=== PATIENT | female | born 1995 ===

== ENCOUNTER 2019-07-17 21:28 | Observation (INO) | payer SELFPAY ==
[2019-07-17 23:38] VITALS: BMI 30.2
[2019-07-18] MEDS ORDERED: Acetaminophen 650 MG Suppository PR PRN (02:21)
[2019-07-18] MEDS ORDERED: Ondansetron ODT 4 MG TAB PO PRN (02:21)
[2019-07-18] MEDS ORDERED: Acetaminophen 325 MG TAB PO PRN (02:21)
[2019-07-18] MEDS: Sodium Chloride 0.9% 1,000 ML IV SCH ×3 (02:53→23:24)
[2019-07-18 04:43] LABS: #Lymphocytes 2.2 thou/uL (1.20-3.40); #Monocytes 0.6 thou/uL (0.11-0.59); #Neutrophils 3.3 thou/uL (1.40-6.50); %Basophils 0.6 % (0.0-1.0); %Eosinophils 0.8 % (0.0-10.0); %Lymphocytes 36.2 % (21.0-51.0); %Monocytes 9.3 % (0.0-10.0); %Neutrophils 53.2 % (42.0-75.0); Mean Corpuscular HGB CONC 33.6 g/dL (32.0-36.0); Mean Corpuscular Hemoglobin 27.6 pg (27.0-31.0); Mean Platelet Volume 8.6 fL (7.4-10.4); Platelet Count 192 thou/uL (130-400); RBC Distribution Width 15.1 % (11.5-14.5); Red Blood Cell (RBC) Count 3.97 mill/uL (4.20-5.40); White Blood Cell (WBC) Count 6.1 thou/uL (4.8-10.8)
[2019-07-18 05:04] LABS: Anion Gap 11 mmol/L (10-20); BUN (Urea Nitrogen) 11 mg/dL (7.0-18.7); Calc. Creatinine Clearance 145 mL/min (70-130); Carbon Dioxide 23 mmol/L (22-29); Chloride 108 mmol/L (98-107); Estimated GFR-MDRD Greater than 90; Glucose 112 mg/dL (70-105); Potassium 3.9 mmol/L (3.5-5.1); Sodium 138 mmol/L (136-145)
--- NOTE | 2019-07-18 07:12 | HP ---
PRIMARY CARE DOCTOR: The patient has no PCP. CODE STATUS: Full code. TIME OF EVALUATION: Around 2:00 a.m. CHIEF COMPLAINT: Abdominal pain. HISTORY OF PRESENT ILLNESS: This is a 23-year-old female patient with no significant past medical history except for cholecystectomy, came to the hospital after having severe gradually worsening abdominal pain that has been present for 2 days with no clear triggers, no alleviating factors, associated with nausea and vomiting. The patient reported that it is in the right upper quadrant. REVIEW OF SYSTEMS: All other systems were reviewed and negative except for the findings mentioned above. PAST MEDICAL HISTORY: Negative. FAMILY HISTORY: Negative. PAST SURGICAL HISTORY: Cholecystectomy. SOCIAL HISTORY: No alcohol, no drugs, no smoking history. ALLERGIES: NO KNOWN DRUG ALLERGIES. PHYSICAL EXAMINATION: VITAL SIGNS: Within normal limits. GENERAL APPEARANCE: The patient is alert, oriented, not in acute distress. HEENT: Eyes; normal conjunctivae. Moist oral mucosa. Anicteric. No JVD. RESPIRATORY: Bilateral air entry. No rales. No wheezes. Symmetric expansion. CARDIOVASCULAR: Normal rate. Regular rhythm. No murmurs. No gallop. No edema. ABDOMEN: Soft. Normal bowel sounds. Tender. No guarding. MUSCULOSKELETAL: Baseline range of motion and strength. SKIN: Warm, intact. No pallor. No rash. No redness. Capillary refill seems to be intact. NEUROLOGIC: No evidence of any new focal weakness. Cranial nerves seem to be intact. PSYCHIATRIC: The patient is in good mood. No anxiety. Optimal judgment. DIAGNOSTIC DATA: Prior to transfer, workup did not reveal any intraabdominal problems. Labs were done. The patient has a white count of 6.1, hemoglobin 11, MCV 82, platelet count 192. Chemistry: Sodium 138, potassium 3.9, chloride 108, carbon dioxide 23, anion gap 11, BUN 11, creatinine 0.8, GFR greater than 90, glucose 112, calcium 9.0. ASSESSMENT AND PLAN: The patient will be placed in the hospital with following medical problems: 1. Abdominal pain of unclear etiology. The patient is receiving pain management. We will monitor and treat accordingly. Please review prior to transfer records for any further need for workup if symptoms not improved. 2. Deep venous thrombosis prophylaxis. Job ID: [id number]
[2019-07-18] MEDS ORDERED: Diabetic Tussin 200 MG/10 ML UDCUP PO PRN (07:59)
[2019-07-18] MEDS ORDERED: Sodium Chloride 0.65% Nasal 44 ML BOT EA NARE PRN (07:59)
[2019-07-18] MEDS ORDERED: Calcium Carbonate 500 MG ChewTAB PO PRN (07:59)
[2019-07-18] MEDS ORDERED: hydrALAZINE 20 MG/ML VIAL SLOW IVP PRN (07:59)
[2019-07-18] MEDS ORDERED: Cepastat Lozenges 1 LOZ PO PRN (07:59)
[2019-07-18] MEDS ORDERED: Artificial Tears 18 DROP/0.9 ML EA EYE PRN (07:59)
[2019-07-18] MEDS ORDERED: Loratadine 10 MG TAB PO PRN (07:59)
[2019-07-18] MEDS ORDERED: Loperamide HCl 2 MG CAP PO PRN (07:59)
[2019-07-18] MEDS ORDERED: Senokot S 8.6-50 MG TAB PO PRN (07:59)
[2019-07-18] MEDS: Enoxaparin Sodium 40 MG/0.4 ML SYRINGE SC SCH (09:28)
[2019-07-18] MEDS: FLUoxetine HCl 20 MG CAP PO SCH (09:29)
[2019-07-18] MEDS: Dicyclomine 10 MG CAP PO SCH ×4 (09:29→20:32)
--- NOTE | 2019-07-18 12:12 | PDOC.HOSPP ---
- Subjective Encounter Date: 07/18/19 Encounter Time: 07:30 Subjective: pt has right sided abdominal pain, Patient seen and examined. No new complaints. No overnight events - Objective Vital Signs & Weight: Vital Signs (12 hours) Temp Pulse Resp BP BP Pulse Ox 07/18/19 07:43 98.4 F 61 18 117/76 99 07/18/19 04:18 98.4 F 61 16 114/72 99 07/18/19 00:15 97.9 F 60 16 110/66 100 Weight Weight 182 lb I&O: 07/17/19 07/18/19 07/19/19 06:59 06:59 06:59 Intake Total 300 Balance 300 Result Diagrams: 07/18/19 04:05 07/18/19 04:05 Radiology Reviewed by me: Yes EKG Reviewed by me: Yes Hospitalist ROS - Review of Systems Constitutional: denies: fever, chills, sweats, weakness, malaise, other Eyes: denies: pain, vision change, conjunctivae inflammation, eyelid inflammation, redness, other ENT: denies: ear pain, ear discharge, nose pain, nose discharge, nose congestion , mouth pain, mouth swelling, throat pain, throat swelling, other Respiratory: denies: cough, dry, shortness of breath, hemoptysis, SOB with excertion, pleuritic pain, sputum, wheezing, other Cardiovascular: denies: chest pain, palpitations, orthopnea, paroxysmal noc. dyspnea, edema, light headedness, other Gastrointestinal: reports: abdominal pain. denies: nausea, vomitting, diarrhea , constipation, melena, hematochezia, other Genitourinary: denies: dysuria, frequency, incontinence, hematuria, retention, other Musculoskeletal: denies: neck pain, shoulder pain, arm pain, back pain, hand pain, leg pain, foot pain, other Skin: denies: rash, lesions, ariadna, bruising, other - Medication Medications: Active Medications Generic Name Dose Route Start Last Admin Trade Name Freq PRN Reason Stop Dose Admin Dicyclomine HCl 10 mg 07/18/19 09:00 07/18/19 09:29 Bentyl PO 10 mg QID GABRIELA Administration Enoxaparin Sodium 40 mg 07/18/19 09:00 07/18/19 09:28 Lovenox SC 40 mg 0900 GABRIELA Administration Fluoxetine HCl 20 mg 07/18/19 09:00 07/18/19 09:29 Prozac PO 20 mg DAILY GABRIELA Administration Sodium Chloride 1,000 mls @ 100 mls/hr 07/18/19 02:30 07/18/19 02:53 Normal Saline 0.9% IV 1,000 mls .Q10H GABRIELA Administration - Exam General Appearance: NAD, awake alert Eye: PERRL, anicteric sclera ENT: normocephalic atraumatic, no oropharyngeal lesions Neck: supple, symmetric, no JVD, no thyromegaly Heart: RRR, no murmur, no gallops, no rubs Respiratory: CTAB, no wheezes, no rales, no ronchi Gastrointestinal: soft, non-distended, normal bowel sounds Extremities: no cyanosis, no clubbing Skin: normal turgor, no lesions, no rashes Neurological: CN's grossly intact, normal sensation to touch, no focal deficits Musculoskeletal: normal tone, normal strength Psychiatric: normal affect, normal behavior Hosp A/P (1) Abdominal pain Code(s): R10.9 - UNSPECIFIED ABDOMINAL PAIN Status: Acute Qualifiers: Abdominal location: right upper quadrant Qualified Code(s): R10.11 - Right upper quadrant pain (2) Obesity (BMI 30.0-34.9) Code(s): E66.9 - OBESITY, UNSPECIFIED Status: Chronic - Plan old records reviewed/req, plan discussed w/ family all investigation done at [place] [facility] ER is normal, exam is benign, will treat symptomatically medication reviewed as above symptomatic treatment
[2019-07-18] MEDS: HYDROcodone/Acetaminophen 5/325 mg Tablet PO PRN ×2 (16:07→21:34)
[2019-07-18] MEDS ORDERED: Pantoprazole 40 MG VIAL IVP SCH (16:30)
[2019-07-18] MEDS: Ketorolac Tromethamine 30 MG/ML VIAL IVP PRN (22:17)
[2019-07-18] MEDS: Zolpidem Tartrate 5 MG TAB PO PRN (23:30)
[2019-07-19] MEDS ORDERED: traMADol HCl 50 MG TAB PO SCH (00:30)
[2019-07-19 00:39] LABS: #Basophils 0.1 thou/uL (0.0-0.2); #Lymphocytes 2.8 thou/uL (1.20-3.40); #Monocytes 0.7 thou/uL (0.11-0.59); #Neutrophils 3.8 thou/uL (1.40-6.50); %Basophils 0.8 % (0.0-1.0); %Eosinophils 0.6 % (0.0-10.0); %Lymphocytes 37.6 % (21.0-51.0); %Monocytes 9.6 % (0.0-10.0); %Neutrophils 51.4 % (42.0-75.0); Hemoglobin 11.4 g/dL (12.0-16.0); Mean Corpuscular HGB CONC 32.1 g/dL (32.0-36.0); Mean Corpuscular Hemoglobin 26.7 pg (27.0-31.0); Mean Corpuscular Volume 83.2 fL (78.0-98.0); Mean Platelet Volume 8.6 fL (7.4-10.4); Platelet Count 202 thou/uL (130-400); RBC Distribution Width 15.4 % (11.5-14.5); Red Blood Cell (RBC) Count 4.27 mill/uL (4.20-5.40); White Blood Cell (WBC) Count 7.4 thou/uL (4.8-10.8)
[2019-07-19 01:01] LABS: ALT (SGPT) 367 U/L (8-55); AST (SGOT) 188 U/L (5-34); Albumin 3.9 g/dL (3.5-5.0); Alkaline Phosphatase 131 U/L (40-150); Anion Gap 9 mmol/L (10-20); BUN (Urea Nitrogen) 9 mg/dL (7.0-18.7); Bilirubin, Total 0.3 mg/dL (0.2-1.2); Calc. Creatinine Clearance 136 mL/min (70-130); Calcium 9.1 mg/dL (7.8-10.44); Carbon Dioxide 27 mmol/L (22-29); Chloride 105 mmol/L (98-107); Estimated GFR-MDRD 84; Globulin 2.6 g/dL (2.4-3.5); Glucose 99 mg/dL (70-105); Lipase 45 U/L (8-78); Potassium 4.2 mmol/L (3.5-5.1); Protein, Total 6.5 g/dL (6.0-8.3); Sodium 137 mmol/L (136-145)
[2019-07-19] MEDS: HYDROcodone/Acetaminophen 5/325 mg Tablet PO PRN ×3 (03:05→22:37)
--- NOTE | 2019-07-19 03:21 | PDOC.EVN ---
Event Note - Event Note Event Note: lft's are high and abdominal pain has continued, will consult GI and treat symptomatically
[2019-07-19 03:52] LABS: #Basophils 0.1 thou/uL (0.0-0.2); #Eosinphils 0.1 thou/uL (0.0-0.7); #Lymphocytes 1.8 thou/uL (1.20-3.40); #Monocytes 0.5 thou/uL (0.11-0.59); #Neutrophils 4.3 thou/uL (1.40-6.50); %Basophils 0.8 % (0.0-1.0); %Eosinophils 0.8 % (0.0-10.0); %Lymphocytes 27.3 % (21.0-51.0); %Monocytes 7.1 % (0.0-10.0); Hemoglobin 11.4 g/dL (12.0-16.0); Mean Corpuscular HGB CONC 32.9 g/dL (32.0-36.0); Mean Corpuscular Hemoglobin 26.8 pg (27.0-31.0); Mean Corpuscular Volume 81.6 fL (78.0-98.0); Mean Platelet Volume 8.4 fL (7.4-10.4); Platelet Count 203 thou/uL (130-400); RBC Distribution Width 15.2 % (11.5-14.5); Red Blood Cell (RBC) Count 4.26 mill/uL (4.20-5.40); White Blood Cell (WBC) Count 6.7 thou/uL (4.8-10.8)
[2019-07-19 04:15] LABS: ALT (SGPT) 354 U/L (8-55); AST (SGOT) 168 U/L (5-34); Albumin 3.9 g/dL (3.5-5.0); Alkaline Phosphatase 127 U/L (40-150); Anion Gap 11 mmol/L (10-20); BUN (Urea Nitrogen) 8 mg/dL (7.0-18.7); Bilirubin, Total 0.3 mg/dL (0.2-1.2); Calc. Creatinine Clearance 151 mL/min (70-130); Calcium 9.1 mg/dL (7.8-10.44); Carbon Dioxide 24 mmol/L (22-29); Chloride 105 mmol/L (98-107); Estimated GFR-MDRD Greater than 90; Globulin 2.6 g/dL (2.4-3.5); Glucose 113 mg/dL (70-105); Potassium 3.7 mmol/L (3.5-5.1); Protein, Total 6.5 g/dL (6.0-8.3); Sodium 136 mmol/L (136-145)
[2019-07-19 04:23] LABS: HBCM Index 0.05 S/CO (0-0.79); HBSAg Index 0.17 S/CO (0-0.99); Hep A IgM AB Non-Reactive (NonReactive); Hep A IgM S/CO 0.11 S/CO (0-0.79); Hep B Surf Ag Non-Reactive S/CO (NonReactive); Hep C IgG Ab Non-Reactive (NonReactive); Hepatitis B Core IgM Abs Non-Reactive (NonReactive)
[2019-07-19] MEDS: FLUoxetine HCl 20 MG CAP PO SCH (08:21)
[2019-07-19] MEDS: Pantoprazole 40 MG VIAL IVP SCH (08:22)
[2019-07-19] MEDS: Dicyclomine 10 MG CAP PO SCH ×4 (08:22→22:32)
--- NOTE | 2019-07-19 08:58 | ULT ---
EXAM: US Gallbladder RUQ PROVIDED CLINICAL HISTORY: Right upper quadrant pain COMPARISON: None FINDINGS: Visualized portions of the pancreas and IVC appear normal. There is suspected intrahepatic biliary ductal dilatation. No evidence for hepatic mass. The common d uct appears prominent, measuring 7 mm. The gallbladder is not visualized compatible with provided clinical history of prior cholecystectomy. The right kidney demonstrates no evidence for hydronephros is or mass. IMPRESSION: Post cholecystectomy with prominence of the common duct and possible intrahepatic biliary ductal dila tation. The degree of biliary prominence is somewhat atypical for patient age despite postcholecystectomy status. Correlation with laboratory values to exclude biliary obstructive change recommended. MRCP may be useful as indicated.
[2019-07-19] MEDS: Sodium Chloride 0.9% 1,000 ML IV SCH ×2 (09:28→21:31)
[2019-07-19] MEDS ORDERED: PROPOFOL 200 MG/20 ML VIAL ONE (10:17)
[2019-07-19] MEDS ORDERED: Rocuronium Bromide 10 MG/ML (10ML VIAL) ONE (10:17)
[2019-07-19] MEDS ORDERED: Lidocaine 1% PF 5 ML VIAL ONE (10:17)
[2019-07-19] MEDS ORDERED: Ondansetron PF 4 MG/2 ML Vial ONE ×2 (10:17→13:56)
[2019-07-19] MEDS ORDERED: Dexamethasone 20 MG/5 ML VIAL ONE (10:17)
[2019-07-19] MEDS ORDERED: ePHEDrine 50 MG/ML VIAL ONE (10:17)
[2019-07-19] MEDS ORDERED: Glycopyrrolate 0.2 MG/ML 5 ML SYRINGE ONE (10:17)
[2019-07-19] MEDS ORDERED: Ketorolac Tromethamine 30 MG/ML VIAL ONE (10:17)
--- NOTE | 2019-07-19 11:39 | CON ---
DATE OF CONSULTATION: 07/19/2019 REQUESTING PHYSICIAN: Dr. Triana. REASON FOR CONSULTATION: Elevated LFTs and abdominal pain. HISTORY OF PRESENT ILLNESS: Gin Vega is a 23-year-old woman with a history of depression, on Prozac, and a past history of cholecystectomy back in 2017 in [place]. She has no chronic gastrointestinal symptoms. Three days ago, she had a fairly acute onset of epigastric/right upper quadrant pain. This has been escalating over the past 3 days since onset. There has been associated nausea, though no vomiting. No diarrhea with this. No subjective fever. She says the pain feels very similar to what she experienced prior to needing her cholecystectomy. She is not sure whether she had gallstones or whether it represented more of an acute cholecystitis, but she says her surgery two years ago was uncomplicated and she did well with no intervening symptoms between then and now. She presented to an outside emergency department, where LFTs were actually normal. Total bilirubin was 0.4, alkaline phosphatase 68, AST 31, and ALT 30. She had an abdominal ultrasound, which demonstrated common bile duct dilation to at least 8 mm and no liver abnormalities. She then had a CT of the abdomen and pelvis in the outside ER, and this demonstrated intra and extrahepatic biliary dilation post cholecystectomy as well as a 2.3 cm cystic appearing lesion in the region of the right ovary. The scan was otherwise negative. The patient was transferred here for further care. Upon arrival here, her LFTs had jumped up significantly this morning. Total bilirubin is 0.3, but AST is up to 168, ALT up to 354, alkaline phosphatase 127, and albumin 3.9. Lipase is normal at 45. The patient is being treated supportively with [place], Bentyl, and Toradol. She is receiving Protonix. She states that the pain is still significant this morning. She has been n.p.o. She has been afebrile and hemodynamically stable. Another abdominal ultrasound was performed upon her arrival here, and this shows persistent biliary dilation to 7 mm with intrahepatic biliary dilation as well. This level of biliary dilation is atypical for the patient's age despite her post cholecystectomy status. REVIEW OF SYSTEMS: Full review of systems including constitutional, head, eyes, ears, nose, throat, GI, , cardiovascular, respiratory, musculoskeletal, neurologic systems is negative except as noted in the HPI. PAST MEDICAL HISTORY: Depression, cholecystectomy in 2017. SOCIAL HISTORY: She does smoke. No alcohol or drug use. FAMILY HISTORY: Multiple family members have had gallbladder issues. ALLERGIES: NO KNOWN DRUG ALLERGIES. MEDICATIONS: Outpatient medications; 1. Prozac. 2. Aleve p.r.n. (the patient takes this sparingly, none over the past week). PHYSICAL EXAMINATION: VITAL SIGNS: Temperature 97.8, pulse 63, blood pressure 107/68, 99% oxygen saturation on room air. GENERAL: A 23-year-old woman, sitting up in bed, in mild distress from abdominal pain. MENTAL: Alert and fully oriented. Pleasant, conversational. SKIN: No jaundice. No rashes were palpable. HEENT: Eyes, no scleral icterus. Extraocular movements intact. ENT, mucous membranes moist. No oral lesions. LYMPH: No submandibular or supraclavicular lymphadenopathy. THYROID: Nontender to palpation. HEART: Regular rate and rhythm. LUNGS: Clear to auscultation bilaterally. ABDOMEN: Bowel sounds are hypoactive, but present. The abdomen is soft, tender to palpation throughout the upper abdomen. No guarding or rebound tenderness. No masses or organomegaly appreciated. EXTREMITIES: No peripheral edema. VESSELS: Radial pulses 2+ bilaterally. NEURO: Cranial nerves 2 through 12 intact bilaterally. No focal deficits. LABORATORY STUDIES: Sodium 136, potassium 3.7, BUN 8, creatinine 0.77, total bilirubin 0.3, alkaline phosphatase 127, AST 168, ALT 354, lipase is 45, and albumin 3.9. Viral hepatitis serologies are all negative. WBC 6.7, hemoglobin 11.4, and platelets 203. ASSESSMENT AND PLAN: 1. Right upper quadrant abdominal pain, acute over the past 3 days. 2. Elevated LFTs, acute. 3. Intra and extrahepatic biliary dilation, seen on both CT and ultrasound imaging. 4. Prior history of cholecystectomy in 2017. The patient's presentation seems most consistent with biliary colic. Given the acute elevation in LFTs as well as the dilation of the common bile duct seen on multiple imaging modalities, suspect she may have retained stone or sludge in the common bile duct causing intermittent obstruction. There is no evidence of pancreatitis at this time. She is at risk for this. An alternative would be a sphincter of Oddi dysfunction. I have enough concern for choledocholithiasis that I do believe that endoscopic retrograde cholangiopancreatography is warranted. We will plan for sphincterotomy and clearance of the bile duct. I discussed this in detail with the patient including the potential risks of the procedure, which include post endoscopic retrograde cholangiopancreatography pancreatitis. The patient expresses understanding and desires to proceed. We will try to accomplish this later today. Please keep her n.p.o. in the meantime. Follow LFTs tomorrow. Further recommendations following endoscopic retrograde cholangiopancreatography. Thank you for the consultation. Please call anytime with questions or concerns. Job ID: [id number]
--- NOTE | 2019-07-19 11:59 | PDOC.HOSPP ---
- Subjective Encounter Date: 07/19/19 Encounter Time: 08:00 Subjective: pt continue to have abdominal pain, her LFT is abnormal, today plan for ERCP - Objective Vital Signs & Weight: Vital Signs (12 hours) Temp Pulse Resp BP Pulse Ox 07/19/19 11:04 98.3 F 57 L 100 H 103/66 100 07/19/19 07:47 97.8 F 63 14 107/68 99 07/19/19 04:00 97.5 F L 57 L 16 114/73 100 Weight Weight 182 lb I&O: 07/18/19 07/19/19 07/20/19 06:59 06:59 06:59 Intake Total 2201 200 Balance 2201 200 Result Diagrams: 07/19/19 03:39 07/19/19 03:39 Radiology Reviewed by me: Yes (US abdoment noted) Hospitalist ROS - Review of Systems ENT: denies: ear pain, ear discharge, nose pain, nose discharge, nose congestion , mouth pain, mouth swelling, throat pain, throat swelling, other Respiratory: denies: cough, dry, shortness of breath, hemoptysis, SOB with excertion, pleuritic pain, sputum, wheezing, other Cardiovascular: denies: chest pain, palpitations, orthopnea, paroxysmal noc. dyspnea, edema, light headedness, other Gastrointestinal: reports: abdominal pain. denies: nausea, vomitting, diarrhea , constipation, melena, hematochezia, other Genitourinary: denies: dysuria, frequency, incontinence, hematuria, retention, other Musculoskeletal: denies: neck pain, shoulder pain, arm pain, back pain, hand pain, leg pain, foot pain, other Skin: denies: rash, lesions, ariadna, bruising, other - Medication Medications: Active Medications Generic Name Dose Route Start Last Admin Trade Name Freq PRN Reason Stop Dose Admin Hydrocodone Bitart/Acetaminophen 1 tab 07/18/19 07:59 07/19/19 03:05 [place] 5/325 PO 1 tab Q4H PRN Administration Moderate Pain (4-6) Dicyclomine HCl 10 mg 07/18/19 09:00 07/19/19 08:22 Bentyl PO 10 mg QID GABRIELA Administration Enoxaparin Sodium 40 mg 07/18/19 09:00 07/18/19 09:28 Lovenox SC 40 mg 0900 GABRIELA Administration Fluoxetine HCl 20 mg 07/18/19 09:00 07/19/19 08:21 Prozac PO 20 mg DAILY GARBIELA Administration Sodium Chloride 1,000 mls @ 100 mls/hr 07/18/19 02:30 07/18/19 23:24 Normal Saline 0.9% IV 1,000 mls .Q10H GABRIELA Administration Ketorolac Tromethamine 15 mg 07/18/19 13:22 07/18/19 22:17 Toradol IVP 07/23/19 13:23 15 mg Q6H PRN Administration Pain Pantoprazole Sodium 40 mg 07/19/19 09:00 07/19/19 08:22 Protonix IVP 40 mg DAILY GABRIELA Administration Zolpidem Tartrate 5 mg 07/18/19 07:59 07/18/19 23:30 Ambien PO 5 mg HSPRN PRN Administration Insomnia - Exam General Appearance: NAD, awake alert Eye: PERRL, anicteric sclera ENT: normocephalic atraumatic, no oropharyngeal lesions Neck: supple, symmetric, no JVD, no thyromegaly Heart: RRR, no murmur, no gallops, no rubs Respiratory: CTAB, no wheezes, no rales, no ronchi Gastrointestinal: soft, non-distended, normal bowel sounds Extremities: no cyanosis, no clubbing, no edema Skin: normal turgor, no lesions, no rashes Neurological: CN's grossly intact, normal sensation to touch, no focal deficits Musculoskeletal: normal tone, normal strength, no muscle wasting Psychiatric: normal affect, normal behavior, A&O x 3 Hosp A/P (1) Abdominal pain Code(s): R10.9 - UNSPECIFIED ABDOMINAL PAIN Status: Acute Qualifiers: Abdominal location: right upper quadrant Qualified Code(s): R10.11 - Right upper quadrant pain (2) Abnormal LFTs Code(s): R94.5 - ABNORMAL RESULTS OF LIVER FUNCTION STUDIES Status: Acute (3) Dilated cbd, acquired Code(s): K83.8 - OTHER SPECIFIED DISEASES OF BILIARY TRACT Status: Acute (4) Obesity (BMI 30.0-34.9) Code(s): E66.9 - OBESITY, UNSPECIFIED Status: Chronic - Plan old records reviewed/req, plan discussed w/ family medication reviewed as above symptomatic treatment will add morphin for pain control GI planning to do ERCP after procedure will observe and repeat labs tomorrow suspecting choledacholithiasis
[2019-07-19] MEDS: Morphine 2 MG/ML SYRINGE SLOW IVP PRN ×2 (12:16→16:20)
[2019-07-19] MEDS ORDERED: Midazolam HCl 2 mg/2 ml Vial ONE (13:54)
[2019-07-19] MEDS ORDERED: Fentanyl 100 MCG/2 ML VIAL ONE ×2 (13:54→13:58)
[2019-07-19] MEDS ORDERED: Indomethacin 50 MG SUPP ONE (13:54)
[2019-07-19] MEDS ORDERED: Scopolamine 1.5 mg/72 hour Patch ONE (13:56)
[2019-07-19] MEDS ORDERED: Famotidine/PF 20 mg/2ml Vial ONE (13:56)
[2019-07-19] MEDS ORDERED: Iothalamate Meglumine 60% 50 ML VIAL FS ONE (14:18)
[2019-07-19] MEDS ORDERED: PACU-Morphine 4MG/ML VIAL SLOW IVP PRN (15:07)
[2019-07-19] MEDS ORDERED: HYDROmorphone 2 MG/ML VIAL SLOW IVP PRN (15:07)
[2019-07-19] MEDS ORDERED: Promethazine HCl 25 MG/ML VIAL IM PRN (15:07)
[2019-07-19] MEDS ORDERED: Promethazine HCl 25 MG/ML VIAL SLOW IVP PRN (15:07)
[2019-07-19] MEDS ORDERED: Ondansetron HCl/PF 4 MG/2 ML Vial IVP PRN (15:07)
[2019-07-19] MEDS: Enoxaparin Sodium 40 MG/0.4 ML SYRINGE SC SCH (17:14)
[2019-07-19] MEDS: Ketorolac Tromethamine 30 MG/ML VIAL IVP PRN ×2 (17:31→22:38)
--- NOTE | 2019-07-19 19:03 | OP ---
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 PROCEDURE PERFORMED: Endoscopic retrograde cholangiopancreatography with biliary sphincterotomy. INDICATIONS: A 23-year-old woman with right upper quadrant pain, nausea, acute LFT elevation, and dilated intra and extrahepatic bile duct on multiple imaging modalities, all concerning for possible choledocholithiasis. MEDICATIONS: 1. See Anesthesia record. 2. Indomethacin 100 mg per rectum, as periprocedural prophylaxis against post endoscopic retrograde cholangiopancreatography pancreatitis. FINDINGS: After discussion of the risks, benefits, and alternatives of the procedure, informed consent was obtained and witnessed. Pre-endoscopic cardiopulmonary examination was satisfactory. Time-out was performed before sedation was achieved. Sedation was achieved with Anesthesia assistance in the endoscopy unit. The patient was endotracheally intubated under general anesthesia. She was placed in a semiprone position on the fluoroscopy table. A Pentax adult side-viewing duodenoscope was inserted into the mouth and passed forward beyond the esophagus and into the stomach. Indirect views of the gastric mucosa were normal. The endoscope was passed through the pylorus and into the second portion of the duodenum. The duodenal mucosa appeared normal. The ampulla was brought into view with the endoscope in the short position. The ampulla appeared normal using a triple lumen dome-tipped sphincterotome and a 0.035 guidewire, we were able to selectively cannulate the common bile duct. The guidewire was passed up into the right intrahepatic system. Biliary cholangiogram was then performed. This demonstrated a mildly dilated common bile duct of 8 to 9 mm, with no clear stricture or filling defects, but a possible meniscus sign at the very distal tip of the common bile duct. The decision was made to proceed with sphincterotomy and balloon sweep of the common bile duct. A generous biliary sphincterotomy was performed. At this point, there was free flow of bile and contrast out of the ampulla. The sphincterotome was exchanged for a 12 to 15 mm balloon. Multiple passes were made of the common bile duct with the balloon partially inflated to 12 mm. I was not able to visualize any significant sludge or stones on multiple clean sweeps of the bile duct. Occlusion cholangiogram was performed and demonstrated no filling defects. A final balloon sweep was made sweeping out excess contrast. The common bile duct was then irrigated with sterile water to flush out remaining contrast. At this point, the working apparatus was completely withdrawn. The endoscope was completely withdrawn suctioning out excess air and fluid. Postprocedure fluoroscopic images demonstrated no retroperitoneal or subdiaphragmatic free air. The procedure was then complete. Please note that we used lead shielding on the patient's pelvis for the examination. The patient tolerated the procedure well. There were no immediate postprocedure complications. IMPRESSION: 1. Biliary dilation to 8 to 9 mm, with no clear filling defects or stricture visualized. 2. Successful biliary sphincterotomy and clean balloon sweep of the common bile duct. RECOMMENDATIONS: 1. Clear liquid diet tonight. Advance diet as tolerated tomorrow if the patient is doing well. 2. Trend the LFTs tomorrow. 3. Monitor for potential complications, including post endoscopic retrograde cholangiopancreatography pancreatitis. 4. GI will continue to follow. Job ID: [id number]
[2019-07-19] MEDS: Morphine 4 MG/ML VIAL SLOW IVP PRN (21:25)
[2019-07-20] MEDS: Morphine 4 MG/ML VIAL SLOW IVP PRN ×5 (01:15→22:15)
[2019-07-20] MEDS: Sodium Chloride 0.9% 1,000 ML IV SCH ×3 (02:20→11:47)
[2019-07-20] MEDS: HYDROcodone/Acetaminophen 5/325 mg Tablet PO PRN ×4 (02:21→18:02)
[2019-07-20] MEDS: Zolpidem Tartrate 5 MG TAB PO PRN (02:22)
[2019-07-20] MEDS: Ketorolac Tromethamine 30 MG/ML VIAL IVP PRN (04:47)
[2019-07-20 05:43] LABS: #Lymphocytes 1.2 thou/uL (1.20-3.40); #Monocytes 0.5 thou/uL (0.11-0.59); #Neutrophils 6.1 thou/uL (1.40-6.50); %Eosinophils 0.2 % (0.0-10.0); %Lymphocytes 15.3 % (21.0-51.0); %Monocytes 6.9 % (0.0-10.0); %Neutrophils 77.6 % (42.0-75.0); Hemoglobin 11.3 g/dL (12.0-16.0); Mean Corpuscular HGB CONC 33.2 g/dL (32.0-36.0); Mean Corpuscular Hemoglobin 26.8 pg (27.0-31.0); Mean Corpuscular Volume 80.8 fL (78.0-98.0); Mean Platelet Volume 8.7 fL (7.4-10.4); Platelet Count 199 thou/uL (130-400); RBC Distribution Width 15.3 % (11.5-14.5); Red Blood Cell (RBC) Count 4.21 mill/uL (4.20-5.40); White Blood Cell (WBC) Count 7.8 thou/uL (4.8-10.8)
[2019-07-20 05:57] LABS: ALT (SGPT) 272 U/L (8-55); AST (SGOT) 82 U/L (5-34); Alkaline Phosphatase 130 U/L (40-150); Anion Gap 12 mmol/L (10-20); BUN (Urea Nitrogen) 7 mg/dL (7.0-18.7); Bilirubin, Total 0.4 mg/dL (0.2-1.2); Calc. Creatinine Clearance 155 mL/min (70-130); Calcium 9.1 mg/dL (7.8-10.44); Carbon Dioxide 22 mmol/L (22-29); Chloride 105 mmol/L (98-107); Estimated GFR-MDRD Greater than 90; Globulin 2.8 g/dL (2.4-3.5); Glucose 99 mg/dL (70-105); Lipase 24 U/L (8-78); Potassium 3.9 mmol/L (3.5-5.1); Protein, Total 6.8 g/dL (6.0-8.3); Sodium 135 mmol/L (136-145)
[2019-07-20] MEDS: Ondansetron PF 4 MG/2 ML Vial IVP PRN ×2 (06:34→17:11)
[2019-07-20 07:14] LABS: Lactic Acid 0.8 mmol/L (0.5-2.2)
[2019-07-20] MEDS: Enoxaparin Sodium 40 MG/0.4 ML SYRINGE SC SCH (08:01)
[2019-07-20] MEDS: Pantoprazole 40 MG VIAL IVP SCH (08:01)
[2019-07-20] MEDS: Dicyclomine 10 MG CAP PO SCH ×4 (08:01→22:15)
[2019-07-20] MEDS: FLUoxetine HCl 20 MG CAP PO SCH (08:02)
--- NOTE | 2019-07-20 11:25 | PDOC.HOSPP ---
- Subjective Encounter Date: 07/20/19 Encounter Time: 11:23 Subjective: cont to complain of severe abd pain made worse with food and walking - Objective Vital Signs & Weight: Vital Signs (12 hours) Temp Pulse Resp BP BP Pulse Ox 07/20/19 11:03 98.7 F 60 14 115/67 98 07/20/19 07:29 98.7 F 74 14 124/76 98 07/20/19 04:43 98 F 58 L 18 120/75 100 07/20/19 00:04 98.3 F 60 18 110/70 98 Weight Weight 182 lb I&O: 07/19/19 07/20/19 07/21/19 06:59 06:59 06:59 Intake Total 2201 1225 1700 Balance 2201 1225 1700 Result Diagrams: 07/20/19 05:03 07/20/19 05:03 Hospitalist ROS - Medication Medications: Active Medications Generic Name Dose Route Start Last Admin Trade Name Freq PRN Reason Stop Dose Admin Hydrocodone Bitart/Acetaminophen 1 tab 07/18/19 07:59 07/20/19 08:01 [place] 5/325 PO 1 tab Q4H PRN Administration Moderate Pain (4-6) Dicyclomine HCl 10 mg 07/18/19 09:00 07/20/19 08:01 Bentyl PO 10 mg QID GABRIELA Administration Enoxaparin Sodium 40 mg 07/18/19 09:00 07/20/19 08:01 Lovenox SC 40 mg 0900 GABRIELA Administration Fluoxetine HCl 20 mg 07/18/19 09:00 07/20/19 08:02 Prozac PO 20 mg DAILY GABRIELA Administration Sodium Chloride 1,000 mls @ 100 mls/hr 07/18/19 02:30 07/20/19 03:50 Normal Saline 0.9% IV Not Given .Q10H GABRIELA Ketorolac Tromethamine 15 mg 07/18/19 13:22 07/20/19 04:47 Toradol IVP 07/23/19 13:23 15 mg Q6H PRN Administration Pain Morphine Sulfate 4 mg 07/19/19 16:28 07/20/19 06:32 Morphine SLOW IVP 4 mg Q4H PRN Administration Severe Pain (7-10) Ondansetron HCl 4 mg 07/18/19 02:21 07/20/19 06:34 Zofran IVP 4 mg Q6H PRN Administration Nausea/Vomiting Pantoprazole Sodium 40 mg 07/19/19 09:00 07/20/19 08:01 Protonix IVP 40 mg DAILY GABRIELA Administration Zolpidem Tartrate 5 mg 07/18/19 07:59 07/20/19 02:22 Ambien PO 5 mg HSPRN PRN Administration Insomnia - Exam Neck: no JVD Heart: RRR, no murmur Respiratory: CTAB Gastrointestinal: soft, non-tender, non-distended, normal bowel sounds Extremities: no edema Hosp A/P (1) Abdominal pain Code(s): R10.9 - UNSPECIFIED ABDOMINAL PAIN Status: Acute Qualifiers: Abdominal location: right upper quadrant Qualified Code(s): R10.11 - Right upper quadrant pain (2) Abnormal LFTs Code(s): R94.5 - ABNORMAL RESULTS OF LIVER FUNCTION STUDIES Status: Acute (3) Dilated cbd, acquired Code(s): K83.8 - OTHER SPECIFIED DISEASES OF BILIARY TRACT Status: Acute (4) Obesity (BMI 30.0-34.9) Code(s): E66.9 - OBESITY, UNSPECIFIED Status: Chronic - Plan post EGD, no stones, etc. no relief with MS, toradol, ertc monitor transaminases discuss with GI
--- NOTE | 2019-07-20 11:33 | PRG ---
DATE OF SERVICE: 07/20/2019 SUBJECTIVE: Ms. Vega complains of continued right upper quadrant pain overnight and this morning, she has required significant amount of narcotics. She has not had any vomiting. No bowel movement since procedure. She has been afebrile and hemodynamically stable. LFTs are trending down. OBJECTIVE: VITAL SIGNS: Temperature 98.7, pulse 74, blood pressure 124/76, and 98% oxygen saturation on room air. GENERAL: No acute distress. HEART: Regular rate and rhythm. LUNGS: Clear to auscultation bilaterally. ABDOMEN: Bowel sounds are present throughout. Soft. Tenderness to palpation in the upper abdomen. No guarding or rebound tenderness. EXTREMITIES: No peripheral edema. LABORATORY STUDIES: WBC 7.8, hemoglobin 11.3, platelets 199. Sodium 135, potassium 3.9, BUN 7, creatinine 0.75. Total bilirubin still normal at 0.4, alkaline phosphatase normal at 130, AST is down from 168 to 82, ALT is down from 354 to 272, lactic acid only 0.8, lipase still normal at 24. Viral hepatitis serologies negative. ASSESSMENT AND PLAN: 1. Right upper quadrant pain, persistent. 2. Elevated liver function tests, improving. 3. Biliary dilation, now status post successful endoscopic retrograde cholangiopancreatography with biliary sphincterotomy on 07/20/2019. It is possible that the patient passed a stone or sludge between the time of arrival and the endoscopic retrograde cholangiopancreatography. No stone or sludge was evident on examination yesterday. I did give her a generous sphincterotomy, so even if this represent a sphincter of Oddi dysfunction, I would expect symptoms to improve as the LFTs are doing. Workup has been otherwise negative. At this time, I would just continue supportive care, trend the LFTs tomorrow. There is no evidence of post endoscopic retrograde cholangiopancreatography pancreatitis. Job ID: [id number]
[2019-07-20] MEDS ORDERED: Lorazepam 1 MG TAB PO PRN (18:50)
[2019-07-20] MEDS ORDERED: Lidocaine 2% Viscous Solution 10 ML, Aluminum & Magnesium Hydroxide 30 ML SSW SCH (20:30)
[2019-07-20] MEDS ORDERED: Fentanyl 100 MCG/2 ML VIAL SLOW IVP SCH (20:30)
[2019-07-21] MEDS: HYDROcodone/Acetaminophen 5/325 mg Tablet PO PRN ×4 (00:07→14:20)
[2019-07-21] MEDS: Zolpidem Tartrate 5 MG TAB PO PRN (00:08)
[2019-07-21] MEDS: Sodium Chloride 0.9% 1,000 ML IV SCH ×2 (01:44→10:08)
[2019-07-21] MEDS: Morphine 4 MG/ML VIAL SLOW IVP PRN (03:23)
[2019-07-21] MEDS: Dicyclomine 10 MG CAP PO SCH ×2 (08:19→13:50)
[2019-07-21] MEDS: Pantoprazole 40 MG VIAL IVP SCH (08:19)
[2019-07-21] MEDS: Enoxaparin Sodium 40 MG/0.4 ML SYRINGE SC SCH (08:19)
[2019-07-21] MEDS: FLUoxetine HCl 20 MG CAP PO SCH (08:19)
[2019-07-21] MEDS: Ketorolac Tromethamine 30 MG/ML VIAL IVP PRN (10:07)
[2019-07-21 11:23] VITALS: BP 112/69; TEMP 98.8
[2019-07-21 12:53] LABS: ALT (SGPT) 143 U/L (8-55); AST (SGOT) 25 U/L (5-34); Albumin 3.3 g/dL (3.5-5.0); Alkaline Phosphatase 88 U/L (40-150); Bilirubin, Direct 0.1 mg/dL (0.1-0.3); Bilirubin, Total 0.2 mg/dL (0.2-1.2); Protein, Total 5.5 g/dL (6.0-8.3)
--- NOTE | 2019-07-21 14:33 | DIS ---
DATE OF ADMISSION: 07/17/2019 DATE OF DISCHARGE: 07/21/2019 TRANSFER OF CARE: PRIMARY CARE PHYSICIAN: None. DISCHARGE DISPOSITION: Discharged home. FINAL DIAGNOSES: Abdominal pain, abnormal liver function test, dilated common bile duct, obesity. DISCHARGE MEDICINES: Fluoxetine 20 mg a day. ALLERGIES: NONE. CODE STATUS: Full. PENDING AT TIME OF DISCHARGE: Nothing. HOSPITAL COURSE: The patient admitted with complaints of severe abdominal pain, pain failed to be managed by IV morphine, etc., Toradol. She had an abdominal ultrasound which revealed a dilated common bile duct. She is post cholecystectomy. Her initial laboratory; comprehensive metabolic profile, bilirubin 0.3, AST 188, ALT 367, alkaline phosphatase 131. Lytes balanced. CBC; hemoglobin 11.0, platelet count 192,000, white count 6.1 without a left shift. The patient was seen in consultation by Dr. Elton Chew. On 07/19/2019, ERCP was done with biliary sphincterotomy. The patient has continued to complain of pain; however, her abdomen is benign x2 days as I have watched her. Her white count has remained normal. Her AST dropped to 82 yesterday and 25 today. Her ALT dropped 367 to 272 to 143. We have discussed the fact that we have no explanation for her complaints of pain. She is asked to be discharged to go think about what she is going to do next. She has a benign abdomen. She has normal vital signs. She is improving laboratory. She is being discharged. She has not been told she needs a PCP to be followed up in 1 week or as soon as possible. Followup by Dr. Chew per his recommendations. Job ID: [id number]
== END 2019-07-21 14:26 | disposition home or self-care (01) ==
LOC: SURG A 21:28
PROVIDERS: ADMIT Hospitalist; ATTEND Hospitalist
PROC: 0F798ZZ Dilation of Common Bile Duct, Via Natural or Artificial Opening Endoscopic (ICD-10-PCS; principal; 2019-07-21)
DX: K83.8 Other specified diseases of biliary tract (principal); E66.9 Obesity, unspecified; Z68.30 Body mass index [BMI] 30.0-30.9, adult
CPT/HCPCS: 36415; 76000; 76705; 80048; 80053; 80074; 80076; 83605; 83690; 85025; 96361; 96372; 96374; 96375; 96376; C9113; G0378; J0131; J1100; J1650; J1885; J2001; J2250; J2270; J2405; J2704; J3010; J3490; S0028